=== PATIENT | female | born 1985 | race African-American/Black ===

== ENCOUNTER 2021-04-27 14:33 | Emergency (ER) | payer OTHER, MEDICAID, SELFPAY ==
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
--- NOTE | ~2021-04-27 | XR_ITS ---
EXAMINATION: XR hand RT min 3V INDICATION: Right hand pain TECHNIQUE: Three views of the right hand are obtained. COMPARISON: None available FINDINGS: There is no fracture, dislocation, or subluxation. The bones, soft tissues, and joint space s are normal. No radiopaque foreign body is identified. IMPRESSION: 1. No acute osseous abnormality. Reviewed, dictated and finalized at location A.
--- NOTE | ~2021-04-27 | XR_ITS ---
EXAMINATION: XR shoulder RT min 2V INDICATION: Right shoulder pain TECHNIQUE: Four views of the right shoulder are submitted. COMPARISON: None FINDINGS: Normal alignment. No fracture. Glenohumeral and acromioclavicular joint spaces are normal. Soft tissues are unremarkable. IMPRESSION: 1. No acute osseous abnormality. Reviewed, dictated and finalized at location A.
--- NOTE | ~2021-04-27 | XR_ITS ---
EXAMINATION: XR hand LT min 3V INDICATION: Left hand pain TECHNIQUE: Three views of the left hand are obtained. COMPARISON: None available FINDINGS: There is no fracture, dislocation, or subluxation. The bones, soft tissues, and joint space s are normal. No radiopaque foreign body is identified. IMPRESSION: 1. No acute osseous abnormality. Reviewed, dictated and finalized at location A.
[2021-04-27 14:43] VITALS: BP 149/109; PULSE 102; RESP 16; TEMP 36.7; O2SAT 99
[2021-04-27 16:38] LABS: Basophils Percent Auto 0.6 % (0.2-1.2); Eosinophils Absolute Auto 0.2 K/mm3 (0-0.3); Eosinophils Percent Auto 2.7 % (0-4.4); Hematocrit 37.2 % (37.0-47.0); Hemoglobin 11.5 g/dL (12.0-15.0); Immature Granulocyte Absolute 0.02 K/mm3 (0.00-0.031); Immature Granulocyte Percent A 0.3 % (0-0.5); Lymphocytes Absolute Auto 2.55 K/mm3 (0.9-3.2); Lymphocytes Percent Auto 36.8 % (18.3-44.2); Mean Corpuscular HGB Conc 30.9 g/dl (32-36); Mean Corpuscular Hemoglobin 24.4 pg (26-34); Mean Platelet Volume 9.2 fl (7.4-10.4); Monocytes Absolute Auto 0.4 K/mm3 (0.1-0.6); Monocytes Percent Auto 5.2 % (2.6-8.5); Neutrophils Absolute Auto 3.8 K/mm3 (1.3-6.7); Neutrophils Percent Auto 54.4 % (45.5-73.1); Platelet Count Result 337 k/mm3 (150-375); Red Blood Count 4.71 M/mm3 (4.2-5.4); Red Cell Distribution Width 15.1 % (11.5-14.5); White Blood Count 6.9 K/mm3 (4.5-10.0)
[2021-04-27 16:51] LABS: Alanine Aminotransferase 32 U/L (4-35); Albumin Level 4.2 g/dL (3.5-5.1); Alkaline Phosphatase 59 U/L (38-126); Anion Gap 11 mmol/L (8-16); Aspartate Amino Transferase 48 U/L (14-36); Bilirubin,Total 0.4 mg/dL (0.2-1.3); Blood Urea Nitrogen 5 mg/dL (7-17); Calcium 9.2 mg/dL (8.4-10.2); Carbon Dioxide 25 mmol/L (22-30); Chloride 104 mmol/L (98-107); Estimated CRCL calculation 93 ml/min; Estimated Glomerular Filt Rate > 60; Glucose 112 mg/dL (65-110); Potassium 3.4 mmol/L (3.4-5.0); Sodium 140 mmol/L (137-145)
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
[2021-04-27 19:51] VITALS: BP 152/118; PULSE 86; RESP 18; TEMP 37.2; O2SAT 100
== END 2021-04-27 19:54 | disposition home or self-care (01) ==
PROVIDERS: Emergency Medicine Emergency Medical Services; Emergency Provider General Practice
DX: S20.219A Contusion of unspecified front wall of thorax, initial encounter (principal); M79.642 Pain in left hand; M25.511 Pain in right shoulder; V89.0XXA Person injured in unspecified motor-vehicle accident, nontraffic, initial encounter
CPT/HCPCS: 36415; 71260; 73030; 73130; 74177; 80053; 81025; 85025; 99284; Q9967

== ENCOUNTER 2021-07-09 09:23 | Emergency (ER) | payer OTHER, SELFPAY ==
[2021-07-09 09:51] VITALS: BP 136/97; PULSE 64; RESP 16; O2SAT 100
[2021-07-09 12:39] VITALS: O2SAT 98
--- NOTE | 2021-07-09 12:40 | ED.URI ---
HPI - URI/Sore Throat General Chief Complaint: Upper Respiratory Infection Stated Complaint: i think i have COVID Time Seen by Provider: 07/09/21 11:25 Source: patient Mode of arrival: ambulatory Limitations: no limitations History of Present Illness HPI Narrative: This is a 35-year-old female that presents to the emergency department for Covid testing. Reports a possible exposure. Over the last couple of days she has noted cough, congestion, and a mild sore throat. Denies fever or shortness of breath. Related Data Allergies Allergy/AdvReac Type Severity Reaction Status Date / Time No Known Allergies Allergy Verified 04/27/21 15:58 Review of Systems Review of Systems: CONSTITUTIONAL: Denies fever ENT: Reports congestion, sore throat RESPIRATORY: Reports cough All systems reviewed & are unremarkable except as noted in HPI and below PMFSH Past Medical History Medical History (Updated 07/09/21 @ 12:44 by Keyanna Robb PA-C) No active medical problems Social History Social History (Updated 04/27/21 @ 18:33 by Mendel Newman PA-C) Smoking status: Never smoker Exam Narrative: GENERAL: Well-appearing, well-nourished, and in no acute distress. HEAD: Normocephalic, atraumatic. EYES: EOMI. ENT: Nares clear, no rhinorrhea or epistaxis. Mucous membranes moist. Oropharynx without tonsillar hypertrophy exudate or other lesions. Bilateral TMs pearly valdes non-bulging NECK: Supple. No adenopathy or masses. CHEST: Clear to auscultation. No respiratory distress. No wheezes rales or rhonchi HEART: Regular rate and rhythm. No murmur heard. Normal peripheral pulses. EXTREMITIES: Normal range of motion. No edema. SKIN: Warm, dry, no rash. NEURO: No focal deficits. Alert and oriented x3. PSYCH: Normal mood and affect Course Vital Signs Vital signs: Vital Signs Pulse Rate 64 07/09/21 09:51 Respiratory Rate 16 07/09/21 09:51 Blood Pressure 136/97 H 07/09/21 09:51 Pulse Oximetry 100 07/09/21 09:51 Pulse Rate 64 07/09/21 09:51 Respiratory Rate 16 07/09/21 09:51 Blood Pressure 136/97 H 07/09/21 09:51 Pulse Oximetry 98 07/09/21 12:39 MDM - URI/Sore Throat MDM Narrative Medical decision making narrative: Patient presents to the emergency department with cold symptoms present over the last couple of days. Lungs are clear on exam. Oxygen saturation is normal on room air. Influenza screen is negative. SARS-CoV-2 is pending. Patient was instructed on continued care of viral infection. She is to follow-up with primary care doctor. She was given warnings to return to the ER Lab Data Attestation: I reviewed the patient's lab results. Labs: Lab Results 07/09/21 Range/Units 11:44 SARS-CoV-2 RNA (RT-PCR) Pending Influenza A Screen Negative Reference Range: Negative Influenza B Screen Negative Reference Range: Negative Critical Care Time Critical Care Time Critical Care Time: No Discharge Plan Discharge Clinical Impression: Person under investigation for COVID-19 Upper respiratory infection Qualifiers: URI type: unspecified viral URI Qualified Code(s): J06.9 - Acute upper respiratory infection, unspecified Patient Disposition: Home, Self-Care Condition: Stable Instructions: Viral Syndrome (ED), COVID-19 (Coronavirus Disease 2019) (ED) Additional Instructions: Return to the emergency department for worsening symptoms, or any other concerns Remain well-hydrated, get plenty of rest. Take Tylenol or Motrin [id number] for pain as needed. Flonase for nasal congestion. Zyrtec for runny nose. Lozenges or Chloraseptic spray for sore throat. Albuterol 2 puffs every 4-6 hours as needed for shortness of breath. You were tested today for coronavirus. It is important you remain self isolated. Your results will likely be back tomorrow F
[2021-07-10 14:14] LABS: SARS-CoV-2 RNA PCR Positive
== END 2021-07-09 13:13 | disposition home or self-care (01) ==
PROVIDERS: Physician Assistant; Emergency Provider Emergency Medicine
DX: U07.1 COVID-19 (principal)
CPT/HCPCS: 87804; 99283; C9803; U0003; U0005

== ENCOUNTER 2021-07-18 20:02 | Emergency (ER) | payer OTHER, SELFPAY ==
[2021-07-18 20:07] VITALS: BP 143/100; PULSE 95; RESP 18; TEMP 36.3; O2SAT 100
--- NOTE | 2021-07-18 20:10 | ECG_ITS ---
Measurements Intervals Logan Rate: 98 P: 56 IA: 155 QRS: 49 QRSD: 99 T: -8 QT: 338 QTc: 432 Interpretive Statements SINUS RHYTHM NONSPECIFIC T-WAVE ABNORMALITY- INFERIOR LEADS BASELINE WANDER- V4 BORDERLINE ECG Electronically Signed On 07-19-2021 6:00:01 [place] TECHNICIAN by Ryan Moreno D.O.
--- NOTE | 2021-07-18 20:59 | PC.NURSE ---
pt. went out of [facility] door without notice of intentions to staff. Pt. in NAD, no increased work of breathing. Gait steady and brisk.
== END 2021-07-18 20:59 | disposition left against medical advice (07) ==
LOC: ANHED 21:07
PROVIDERS: Emergency Provider Emergency Medicine
DX: R07.9 Chest pain, unspecified (principal)
CPT/HCPCS: 93005; 99199

== ENCOUNTER 2021-12-22 00:26 | Emergency (ER) | payer OTHER, SELFPAY ==
--- NOTE | ~2021-12-22 | US_ITS ---
EXAMINATION: US OB follow up DATE: 12/22/2021 02:13 INDICATION: Right-sided pelvic pain during early second trimester of TECHNIQUE: Real-time ultrasound of the pelvis was performed. The interpreting radiologist was not pre sent for the study. COMPARISON: None. FINDINGS: There is a single living fetus in vertex presentation. The placenta is anterior. heart rate is 155 beats per minute (bpm). The amniotic fluid index is subjectively normal. The left ovary measures 3.3 x 1.8 x 3.7 cm containing a 1.1 cm anechoic likely corpus luteum cyst. The right ovary measures 2.8 x 2.1 x 1.7 cm. Vascular flow with both arterial and venous waveforms identified in both ovaries. The following biometric data were obtained: BPD: 3.4 cm -> 16 weeks 4 days Head circumference: 12.5 cm -> 16 weeks 2 days Abdominal circumference: 10.3 cm -> 16 weeks 2 days Femur length: 2.1 cm -> 16 weeks 3 days These measurements are concordant. Head circumference to abdominal circumference ratio: 1.21 (normal range 1.06-1.32). Estimated weight: 153 g (+/-) 23 g or 5 oz. (+/-) 1 oz. IMPRESSION: 1. Single living fetus in vertex presentation with heart rate of 155 bpm. 2. Gestational age by ultrasound of 16 weeks 3 day(s) +/- 1 week(s) 1 day(s) with ultrasound estimate d date of delivery (LUKASZ) of 06/05/2022. Estimated weight is 89th percentile by Hadlock criteria when 06/11/2022 is used as the LUKASZ. Please correlate with clinical information or earlier ultrasounds for most accurate LUKASZ. Reviewed, dictated and finalized at location A. IMPRESSION: 1. Single living fetus in vertex presentation with heart rate of 155 bpm. 2. Gestational age by ultrasound of 16 weeks 3 day(s) +/- 1 week(s) 1 day(s) wi th ultrasound estimated date of delivery (LUKASZ) of 06/05/2022. Estimated w eight is 89th percentile by Hadlock criteria when 06/11/2022 is used as the LUKASZ. Please correlate with clinical information or earlier ultrasounds for most acc urate LUKASZ.
[2021-12-22 00:33] VITALS: BP 142/78; PULSE 103; RESP 18; TEMP 36.6; O2SAT 100
--- NOTE | 2021-12-22 00:57 | ED.FEMALEGU ---
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 Patient states that the pain came on after she was exerting herself. Pain is present in her right low back and radiates down her right leg, and she states the pain is also occasionally present in her rectum area. She does have a history of sciatica, these has always been flared up in her previous pregnancies. Also reporting some pain over her right lower abdomen that she describes as a cramp. denies incontinence or retention of her bowel or bladder, saddle anesthesia, vaginal bleeding, vomiting. Patient has not seen an OB doctor yet during her , but does have follow-up at the end of this month. Has not had US to visualize IUP. Related Data Allergies Allergy/AdvReac Type Severity Reaction Status Date / Time No Known Allergies Allergy Verified 04/27/21 15:58 Review of Systems Review of Systems: Gen.: Denies fevers or chills Eyes: Denies eye pain or visual change ENT: Denies congestion Respiratory: Denies shortness of breath or cough CV: Denies chest pain or palpitations GI: Denies abdominal pain nausea, emesis or diarrhea : denies burning, urgency, frequency or hematuria Musculoskeletal: Reports back pain. Neuro: Denies numbness, tingling, weakness or focal weakness Skin: Denies rash Except as documented, all other systems reviewed and negative PMFSH Past Medical History Medical History No active medical problems Social History Social History (Updated 04/27/21 @ 18:33 by Mendel Newman, PAGonzaloC) Smoking status: Never smoker Exam Narrative: APPEARANCE: Well appearing, no pain in distress, well-nourished. Head: normocephalic and atraumatic. EYES: PERRLA/EOMI, conjunctivae clear NOSE: No nasal drainage EARS: External ear normal in appearance THROAT: Oropharynx is clear. Mucous membranes are moist. NECK: Supple. No adenopathy, no masses. RESPIRATORY: Airway patent, respirations nonlabored. Clear to auscultation bilaterally, no rales, rhonchi, wheezing. CARDIOVASCULAR: Regular rate and rhythm without murmurs, rubs, or gallops. ABDOMINAL: Normoactive bowel sounds. Soft, nontender, nondistended. No rebound tenderness or guarding. MUSCULOSKELETAL: Straight leg raise positive on the right. Extremities are warm and well-perfused. Moves all extremities well. No edema. NEURO: Normal speech. No focal neurologic deficits. SKIN: Skin is warm and dry. No rashes. PSYCHIATRIC: Normal affect/mood. Course Vital Signs Vital signs: Vital Signs Temperature 36.6 C 12/22/21 00:33 Pulse Rate 103 H 12/22/21 00:33 Respiratory Rate 18 12/22/21 00:33 Blood Pressure 142/78 H 12/22/21 00:33 Pulse Oximetry 100 12/22/21 00:33 Temperature 36.6 C 12/22/21 00:33 Pulse Rate 103 H 12/22/21 00:33 Respiratory Rate 18 12/22/21 00:33 Blood Pressure 142/78 H 12/22/21 00:33 Pulse Oximetry 100 12/22/21 00:33 MDM - Female Genitourinary MDM Narrative Medical decision making narrative: 36-year-old female who is currently about 3 to 4 months here for evaluation of right-sided low back pain and also right abdominal pain for the past 2 days. Patient hypertensive, vital signs otherwise normal. Leg raise is positive on the right, heart tones were detected at 155. Patient is hypertensive, but she is without headache, and UA without proteinuria so doubt preeclampsia. Patient has not had ultrasound to visualize IUP, so this was obtained in the emergency department. Lab Data Labs: Lab Results 12/22/21 Range/Units 02:16 Urine Color Yellow (Yellow) Urine Appearance Clear (Clear)
[2021-12-22] MEDS: LIDOCAINE 5% PATCH 1 PATCH TRANSDERM (01:32)
[2021-12-22] MEDS: ACETAMINOPHEN 500 MG TABLET 1000 MG PO (01:32)
--- NOTE | 2021-12-22 02:00 | PC.NURSE ---
pt reports unable to provide urine sample at this time
[2021-12-22 02:37] LABS: Appearance Urine Clear (Clear); Bilirubin Urine 1+ (Negative); Blood Urine Negative (Negative); Color Urine Yellow (Yellow); Glucose Urine UA Negative (Negative); Ketones Urine 1+ mg/dL (Negative); Leukocyte Esterase Ur Negative LEU/UL (Negative); Nitrate Urine Negative (Negative); Protein Urine Trace mg/dL (Negative); Specific Grav Ur >= 1.030 (1.001-1.035); Urobilinogen Urine 0.2 mg/dL (<2.0)
[2021-12-22 02:46] LABS: Bacteria Urine Trace /hpf; Mucus Urine Heavy /lpf; Squamous Epithelial Cell Urine Many /hpf (Few); WBC Urine 0-3 /hpf
[2021-12-22 02:49] LABS: Add Urine Microscopic? YES
[2021-12-22 04:25] VITALS: BP 126/70; PULSE 87; RESP 16; O2SAT 100
== END 2021-12-22 04:29 | disposition home or self-care (01) ==
PROVIDERS: Physician Assistant; Emergency Provider Family Medicine
DX: O99.891 Other specified diseases and conditions complicating pregnancy (principal); M54.41 Lumbago with sciatica, right side; Z3A.16 16 weeks gestation of pregnancy
CPT/HCPCS: 76816; 81001; 99284; A9270

== ENCOUNTER 2022-04-28 09:59 | Observation (INO) | payer OTHER, SELFPAY ==
[2022-04-28] VITALS (16 sets, daily range): BP systolic 122–135; BP diastolic 75–92; PULSE 101–114; O2SAT 96–100
--- NOTE | 2022-05-25 12:34 | PM.OBTRLD ---
OB - Triage/Final Diagnosis Visit Information Comments/Additional reasons for admission: I have assessed the risk for this patient, Anabel Frankel, and determined that she would benefit from observation care. Final Diagnosis (1) False labor: Code(s): O47.9 - False labor, unspecified Status: Acute
== END 2022-04-28 12:10 | disposition home or self-care (01) ==
PROVIDERS: Admitting Provider Obstetrics & Gynecology; Visit Provider Obstetrics & Gynecology
DX: O47.03 False labor before 37 completed weeks of gestation, third trimester (principal); Z3A.34 34 weeks gestation of pregnancy
CPT/HCPCS: G0378; G0379

== ENCOUNTER 2022-05-12 09:38 | Outpatient (CLI) | payer OTHER, SELFPAY ==
--- NOTE | ~2022-05-12 | US_ITS ---
EXAMINATION: US OB /maternal detail DATE: 05/12/2022 10:48 INDICATION: Limited care during third trimester . TECHNIQUE: Multiple obstetric sonographic images performed. FINDINGS: There is a single living fetus in vertex presentation. The placenta is anterior. MARIA DEL ROSARIO measures 15.5 c m (5th%-95%: 7.9-24.9 cm at 35 weeks estimated gestational age) . heart rate of 135 beats per m inute. The following anatomy was identified as normal: Falx and cava septum pellucidum. The cerebellum posterior fossa of the brain to the cerebellum and ci sterna magna are obscured due to vertex position of the skull and increasing shadowing calvarial calc ification due to gestational age. The spine is also not clearly visualized due to positioning of the fetus with the spine position post eriorly and abutting the gestational sac. Upper lip Nasal bone Heart with normal four-chamber view and left ventricular outflow tract. Nondiagnostic right ventricul ar outflow tract view. Diaphragm Stomach Kidneys Bladder 3 vessel cord and cord insertion Bilateral upper and lower extremities including hands and feet The following biometric data were obtained: BPD: 8.9 cm -> 36 weeks 1 days Head circumference: 33.3 cm -> 38 weeks 0 days Abdominal circumference: 31.6 cm -> 35 weeks 4 days Femur length: 6.7 cm -> 34 weeks 3 days These measurements are concordant. Head circumference to abdominal circumference ratio: 1.05 (normal range 0.93-1.08). Estimated weight: 2707 g (+/-) 406 g. or 5 lbs. 15 oz. (+/-) 14 oz. IMPRESSION: 1. Single living fetus with vertex presentation with heart rate of 135 bpm. 2. Estimated weight is 42nd percentile by Hadlock criteria when 06/10/2022 is used as the LUKASZ. Please correlate with clinical information or earlier ultrasounds for most accurate LUKASZ. 3. Incomplete but otherwise normal survey is detailed above due to positioning and relati vely advanced gestational age. Reviewed, dictated and finalized at location B. IMPRESSION: 1. Single living fetus with vertex presentation with heart rate of 135 b pm. 2. Estimated weight is 42nd percentile by Hadlock criteria when 2 is used as the LUKASZ. Please correlate with clinical information or earlier ult rasounds for most accurate LUKASZ. 3. Incomplete but otherwise normal survey is detailed above due to positioning and relatively advanced gestational age.
== END 2022-05-12 09:39 | disposition home or self-care (01) ==
PROVIDERS: Visit Provider Obstetrics & Gynecology Gynecology
DX: Z36.9 Encounter for antenatal screening, unspecified (principal); Z3A.00 Weeks of gestation of pregnancy not specified
CPT/HCPCS: 76805

== ENCOUNTER 2022-06-04 14:41 | Observation (INO) | payer OTHER, SELFPAY ==
[2022-06-04 16:00] VITALS: BMI 35.9
--- NOTE | 2022-06-04 16:25 | LDADM ---
This patient, Anabel Frankel, was admitted to Labor/Delivery/Recovery 107 on 06/04/22 at 14:41. Plans for labor, pain management and were discussed with patient. Patient/family oriented to hospital policies and general routines including ID bracelet, bed and alarms, visiting hours, pain management, procedures, bathroom and other care routines, personal items, smoking policy, room service/diet and guest tray routines, infant security routines, and visiting hours. Patient/Family are encouraged to report perceived risks to care and to ask questions if they do not understand what they are told or what they should do. See OBIX for further documentation.
--- NOTE | 2022-06-04 16:58 | PC.NURSE ---
Patient was on the FHT monitors from 5603-6381. FHT baseline from 1438-3697 was 135 with moderate variability. Accelerations present. No decelerations present. Patient having mild to moderate contractions every 10-14 minutes. From 1002-3319, FHT baseline was 150 with moderate variability and accelerations present. No decelerations present. Patient having mild to moderate contractions every 4-8 minutes.
--- NOTE | 2022-06-07 07:14 | PM.OBTRLD ---
OB - Triage/Final Diagnosis Visit Information Date of evaluation: 06/02/22 Reason for evaluation: threatened labor Comments/Additional reasons for admission: I have assessed the risk for this patient, Anabel Rodriguez Marlys, and determined that she would benefit from observation care.
--- NOTE | 2022-06-09 07:27 | PM.OBTRLD ---
OB - Triage/Final Diagnosis Visit Information Date of evaluation: 06/05/22 Reason for evaluation: threatened labor Comments/Additional reasons for admission: I have assessed the risk for this patient, Anabel Rodriguez Marlys, and determined that she would benefit from observation care.
== END 2022-06-04 16:50 | disposition home or self-care (01) ==
PROVIDERS: Admitting Provider Obstetrics & Gynecology; Visit Provider Obstetrics & Gynecology
DX: O47.9 False labor, unspecified (principal); Z3A.39 39 weeks gestation of pregnancy
CPT/HCPCS: G0378; G0379

== ENCOUNTER 2022-06-04 20:10 | Observation (INO) | payer OTHER, SELFPAY ==
[2022-06-04 20:23] VITALS: PULSE 100; PULSE 103; O2SAT 100
[2022-06-04 20:25] VITALS: PULSE 98; O2SAT 100
[2022-06-04 21:04] VITALS: BP 140/85; PULSE 90
[2022-06-04 21:11] LABS: Appearance Urine Clear (Clear); Bilirubin Urine Negative (Negative); Blood Urine Negative (Negative); Color Urine Yellow (Yellow); Glucose Urine UA Negative (Negative); Ketones Urine Negative (Negative); Leukocyte Esterase Ur Negative LEU/UL (Negative); Nitrate Urine Negative (Negative); Protein Urine Negative (Negative); Specific Grav Ur 1.015 (1.001-1.035); Urobilinogen Urine 0.2 mg/dL (<2.0); pH Urine 8.5 (5.0-9.0)
[2022-06-04 21:25] LABS: Add Urine Microscopic? NO
[2022-06-04 21:30] VITALS: BP 138/95; PULSE 88
[2022-06-04 22:52] VITALS: BMI 34.4
--- NOTE | 2022-06-04 22:52 | OBADM ---
This patient, Anabel Frankel, admitted to the OB room Labor/Delivery/Recovery 105 for observation. Patient/family oriented to hospital policies and general routines including ID bracelet, bed and alarms, visiting hours, pain management, procedures, bathroom and other care routines, personal items, smoking policy, room service/diet, and visiting hours. Patient/Family are encouraged to report perceived risks to care and to ask questions if they do not understand what they are told or what they should do.
--- NOTE | 2022-06-06 09:31 | PM.OBTRLD ---
OB - Triage/Final Diagnosis Visit Information Reason for evaluation: threatened labor Comments/Additional reasons for admission: I have assessed the risk for this patient, Anabel Frankel, and determined that she would benefit from observation care. Evaluation Laboratory results: Laboratory Tests 06/04/22 20:51 Urine Color Yellow Urine Appearance Clear Urine pH 8.5 Ur Specific [place] 1.015 Urine Protein Negative Urine Glucose (UA) Negative Urine Ketones Negative Ur Blood (Man) Negative Urine Nitrate Negative Urine Bilirubin Negative Urine Urobilinogen 0.2 Leukocyte Esterase Rfl Negative
--- NOTE | 2022-06-08 08:53 | P.PNOB_ITS ---
OB - Triage/Final Diagnosis Visit Information Reason for evaluation: threatened labor Comments/Additional reasons for admission: I have assessed the risk for this patient, Anabel Frankel, and determined that she would benefit from observation care. Evaluation Laboratory results: Laboratory Tests 06/04/22 20:51 Urine Color Yellow Urine Appearance Clear Urine pH 8.5 Ur Specific [place] 1.015 Urine Protein Negative Urine Glucose (UA) Negative Urine Ketones Negative Ur Blood (Man) Negative Urine Nitrate Negative Urine Bilirubin Negative Urine Urobilinogen 0.2 Leukocyte Esterase Rfl Negative
== END 2022-06-04 23:16 | disposition home or self-care (01) ==
PROVIDERS: Admitting Provider Obstetrics & Gynecology; Visit Provider Obstetrics & Gynecology
DX: O47.1 False labor at or after 37 completed weeks of gestation (principal); Z3A.39 39 weeks gestation of pregnancy
CPT/HCPCS: 81003; G0378; G0379

== ENCOUNTER 2022-06-05 11:32 | Inpatient (IN) | payer OTHER, SELFPAY ==
[2022-06-05] VITALS (73 sets, daily range): BP systolic 103–171; BP diastolic 68–115; PULSE 74–220; TEMP 36.6–36.9; O2SAT 70–100; BMI 35.5
[2022-06-05 12:39] LABS: Basophils Percent Auto 0.3 % (0.2-1.2); Eosinophils Absolute Auto 0.1 K/mm3 (0-0.3); Eosinophils Percent Auto 1.9 % (0-4.4); Hematocrit 30.2 % (37.0-47.0); Hemoglobin 9.5 g/dL (12.0-15.0); Immature Granulocyte Absolute 0.04 K/mm3 (0.00-0.031); Immature Granulocyte Percent A 0.5 % (0-0.5); Lymphocytes Absolute Auto 2.11 K/mm3 (0.9-3.2); Lymphocytes Percent Auto 28.6 % (18.3-44.2); Mean Corpuscular HGB Conc 31.5 g/dl (32-36); Mean Corpuscular Hemoglobin 23.9 pg (26-34); Mean Corpuscular Volume 75.9 fl (80-100); Monocytes Absolute Auto 0.5 K/mm3 (0.1-0.6); Monocytes Percent Auto 7.3 % (2.6-8.5); Neutrophils Absolute Auto 4.5 K/mm3 (1.3-6.7); Neutrophils Percent Auto 61.4 % (45.5-73.1); Platelet Count Result 260 k/mm3 (150-375); Red Blood Count 3.98 M/mm3 (4.2-5.4); Red Cell Distribution Width 14.5 % (11.5-14.5); White Blood Count 7.4 K/mm3 (4.5-10.0)
--- NOTE | 2022-06-05 12:44 | WPDOBADMIT ---
Obstetrics - Admit Note Admission Note: record reviewed. No pertinent additions to the history and/or any subsequent changes in the physical findings that are not consistent with the expected course of the were found. Additions to the history and/or subsequent changes in the physical findings follow. None.
--- NOTE | 2022-06-05 12:44 | LDADM ---
This patient, Anabel Frankel, was admitted to Labor/Delivery/Recovery 107 on 06/05/22 at 11:32. Plans for labor, pain management and were discussed with patient. Patient/family oriented to hospital policies and general routines including ID bracelet, bed and alarms, visiting hours, pain management, procedures, bathroom and other care routines, personal items, smoking policy, room service/diet and guest tray routines, infant security routines, and visiting hours. Patient/Family are encouraged to report perceived risks to care and to ask questions if they do not understand what they are told or what they should do. See OBIX for further documentation.
--- NOTE | 2022-06-05 12:45 | PM.OBPNLAB ---
Pain Control Date/time seen: 06/05/22 12:40 Pain control: tolerating well Pelvic Exam Dilation (cm): 5 Effacement (%): 50 station: -3 Amniotic membrane status: Intact Contractions Monitor mode: External Contraction frequency: 7 (irregular) Contraction pattern: Irregular Status status: Category l Comments: Baseline 135. Moderate variability. Accelerations Assessment and Plan Comments: CNM to bedside. patient with mild discomfort, complains of contractions every 5-7 minutes. Discussed options of expectant management versus augmentation at this time. Patient strongly desires rupture of membranes. Discussed risk and benefit of procedure and she desires to continue. Amniotomy performed. Small amount of clear fluid returned. Anticipate vaginal .
[2022-06-05 13:22] LABS: Uric Acid 4.4 mg/dL (2.5-7.5)
--- NOTE | 2022-06-05 13:22 | WPDANESEPP ---
Anes - Eval Pre Procedure Procedure: labor epidural Date/Time: 06/05/22 13:22 Preop Diagnosis: labor pain Pre Op Diagnosis: Induction of Labor Patient Data Age: 36 Gender: F Height: 1.6 m Weight: 91 kg Last Vital Signs Pulse 86 06/05/22 12:42 BP 140/89 06/05/22 12:42 O2 Del Method Room Air 06/05/22 12:33 Allergies Allergy/AdvReac Type Severity Reaction Status Date / Time No Known Allergies Allergy Verified 05/31/22 12:45 Home Medications Medication Instructions Recorded Confirmed Type 1 tablet PO DAILY 05/19/22 05/31/22 History Vitamin D3 50,000 unit PO WEEKLY 05/19/22 05/31/22 History ferrous sulfate 325 mg (65 mg 325 mg PO BID 05/19/22 05/31/22 History iron) tablet (FeroSul) magnesium 1 tablet PO EVERY OTHER DAY 05/19/22 05/31/22 History Laboratory Tests 06/05/22 06/05/22 06/05/22 12:30 12:30 12:59 WBC 7.4 K/mm3 K/mm3 (4.5-10.0) RBC 3.98 M/mm3 L M/mm3 (4.2-5.4) Hgb 9.5 g/dL L g/dL (12.0-15.0) Hct 30.2 % L % (37.0-47.0) MCV 75.9 fl L fl (80-100) MCH 23.9 pg L pg (26-34) MCHC 31.5 g/dl L g/dl (32-36) RDW 14.5 % % (11.5-14.5) Plt Count 260 k/mm3 k/mm3 (150-375) MPV 9.0 fl fl (7.4-10.4) Immature Gran % (Auto) 0.5 % % (0-0.5) Neut % (Auto) 61.4 % % (45.5-73.1) Lymph % (Auto) 28.6 % % (18.3-44.2) [place] % (Auto) 7.3 % % (2.6-8.5) Eos % (Auto) 1.9 % % (0-4.4) Baso % (Auto) 0.3 % % (0.2-1.2) Lymph # (Auto) 2.11 K/mm3 K/mm3 (0.9-3.2) [place] # (Auto) 0.5 K/mm3 K/mm3 (0.1-0.6) Eos # (Auto) 0.1 K/mm3 K/mm3 (0-0.3) Baso # (Auto) 0.0 K/mm3 K/mm3 (0.0-0.1) Abs Immat Gran (auto) 0.04 K/mm3 H K/mm3 (0.00-0.031) Absolute Neuts (auto) 4.5 K/mm3 K/mm3 (1.3-6.7) Absolute Nucleated RBC 0.0 K/mm3 K/mm3 (0.0-0.012) Nucleated RBC % 0.0 % % (0.0-0.2) Sodium Potassium Chloride Carbon Dioxide Anion Gap BUN Creatinine Estim Creat Clear Calc Estimated GFR Glucose Uric Acid 4.4 mg/dL mg/dL (2.5-7.5) Calcium Total Bilirubin AST ALT Alkaline Phosphatase Total Protein Albumin RPR Pending 06/05/22 12:59 WBC RBC Hgb Hct MCV MCH MCHC RDW Plt Count MPV Immature Gran % (Auto) Neut % (Auto) Lymph % (Auto) [place] % (Auto) Eos % (Auto) Baso % (Auto) Lymph # (Auto) [place] # (Auto) Eos # (Auto) Baso # (Auto) Abs Immat Gran (auto) Absolute Neuts (auto) Absolute Nucleated RBC Nucleated RBC % Sodium Pending Potassium Pending Chloride Pending Carbon Dioxide Pending Anion Gap Pending BUN Pending Creatinine Pending Estim Creat Clear Calc Pending Estimated GFR Pending Glucose Pending Uric Acid Calcium Pending Total Bilirubin Pending AST Pending ALT Pending Alkaline Phosphatase Pending Total Protein Pending Albumin Pending RPR Patient hx anesthesia problems: none Family hx anesthesia problems: none Results Review: All pre-operative results and documents have been reviewed as part of the pre-operative evaluation. [facility] Past Medical History Medical History No active medical problems Social History Social History Smoking packs per day: 0.25 Smoking cigarettes per day: 5.0 Years smoked: 20 Smoking pack-ye
[2022-06-05 13:32] LABS: Alanine Aminotransferase 16 U/L (6-35); Albumin Level 3.4 g/dL (3.5-5.1); Alkaline Phosphatase 193 U/L (38-126); Anion Gap 8 mmol/L (8-16); Aspartate Amino Transferase 23 U/L (14-36); Bilirubin,Total 0.3 mg/dL (0.2-1.3); Blood Urea Nitrogen 5 mg/dL (7-17); Calcium 8.3 mg/dL (8.4-10.2); Carbon Dioxide 22 mmol/L (22-30); Chloride 104 mmol/L (98-107); Estimated CRCL calculation 142 ml/min; Estimated Glomerular Filt Rate > 60; Glucose 80 mg/dL (65-110); Potassium 3.9 mmol/L (3.4-5.0); Sodium 134 mmol/L (137-145)
[2022-06-05 14:26] LABS: Amphetamine Screen Urine Negative (Negative); Barbiturate Screen Urine Negative (Negative); Benzodiazepines Screen Urine Negative (Negative); Cannabinoid Screen Urine Positive (Negative); Cocaine Screen Urine Negative (Negative); Methadone Screen Urine Negative (Negative); Opiate Screen Urine Negative (Negative); Phencyclidine Screen Urine Negative (Negative)
[2022-06-05] MEDS: LACTATED RINGERS 1,000 ML 125 ML IV CONT ×2 (15:35→17:56)
[2022-06-05] MEDS: OXYTOCIN 30 UNITS/NS 500 ML 30 UNITS/500 ML BAG IV CONT (15:36)
[2022-06-05] MEDS: fentaNYL CITRATE INJ (*CRX) 100 MCG/2 ML VIAL 50 MCG IV PUSH (16:33)
[2022-06-05] MEDS: SODIUM CHLORIDE 0.9% IV 300 ML 600 ML I-UTERINE (17:49)
--- NOTE | 2022-06-05 18:10 | PM.OBPNLAB ---
Pain Control Date/time seen: 06/05/22 18:10 Pain control: narcotic analgesia Comments: Attempted epidural placement this afternoon but pt was unable to remain still for placement. Moving and rocking with contractions, moaning, tearful at times. Pelvic Exam Amniotic membrane status: Ruptured Comments: SVE with IUPC placement / Contractions Monitor mode: External Contraction frequency: 2 (2-3) Contraction duration: 60 Contraction pattern: Regular Status status: Category ll Assessment and Plan Comments: CNM at bedside. Pt laboring. Making frequent position changes, rocking and moaning with contractions. IUPC inserted due to variable decels. Amnioinfusion started. Pitocin off. Attempted to place FSE but pt unable to remain still long enough to place. EFM continually adjusted.
--- NOTE | 2022-06-05 18:50 | PM.OBPNLAB ---
Pain Control Date/time seen: 06/05/22 18:50 Pain control: epidural Pelvic Exam Dilation (cm): 7 Effacement (%): 80 (anterior portion of cervix edematous) station: -1 Amniotic membrane status: Ruptured Contractions Monitor mode: Internal Contraction pattern: Regular Status status: Category ll Comments: Baseline 125. Reassured by moderate variability and acceleration Assessment and Plan Pitocin rate (mU/min): 0 Assessment: active labor Plan: continuous present management Comments: Will restart oxytocin as needed to achieve adequate contraction pattern. Recommend frequent repositioning. Anticipate vaginal .
[2022-06-05] MEDS: diphenhydrAMINE HCl INJ 50 MG/ML VIAL 25 MG IV PUSH (19:08)
[2022-06-05] MEDS: CALCIUM CARBONATE (TUMS) 500 MG (200 MG ELEMENTAL) PO (19:14)
[2022-06-05] MEDS: miSOPROStol 200 MCG TABLET 800 MCG RECTAL (19:43)
--- NOTE | 2022-06-05 19:55 | PM.OBPRVD ---
OB - Delivery Note Procedure Delivery date: 06/05/22 Procedure: Induction method: AROM and Per Pitocin Protocol Delivery augmentation: Pitocin Delivery monitor: External FHT, External Uterine, Internal FHT and Internal Uterine Route of delivery: Episiotomy description: None Laceration Description: Periurethral, Vaginal (right vaginal wall 1st degree) and Superficial Delivery repair: vicryl Specimen: No Quantitative Blood Loss (ml): 150 Anesthesia type: Epidural Disposition: Floor Narrative: Pt complete dilation and FHTs with repetitive variable decelerations. Pt positioned in lithotomy and began pushing with contractions. Pt brought the head to a crown. She delivered the head with the next push. There was good restitution and a loose nuchal cord was identified. With the next push, the remainder of the infant was delivered. Terminal meconium was present. The was placed on the maternal abdomen and cared for by the nursery nurse. After one minute of life, the cord was doubly clamped and cut. Cord gasses and cord blood were obtained. The placenta delivered spontaneously. Uterine tone was firm. A small (1.5 cm) right vaginal wall 1st degree laceration was repaired in the usual fashion. There was excellent hemostasis. 800mcg Misoprostol given NV due to grand multiparity for prevention of uterine atony. Baby Date of : 06/05/22 Time of : 19:31 Weeks of gestation at delivery: 39 Infant gender: Male Weight (pounds): 7 Weight (ounces): 2 presentation: vertex position: Left Occiput Anterior Placenta delivery description: Spontaneous Cord Vessel Description: 3 Vessels score one minute: 8 score five minutes: 9
--- NOTE | 2022-06-05 20:07 | PM.OBDSVD ---
DS: Admitting Diagnosis Discharge Date 06/07/22 Admitting Diagnosis 1. 36 y.o at 39w2d. 2. Latent labor 3. Grand Multip 4. Anemia 5. Nicotine use in 6. late transfer of care 7. Anxiety. 8. Hx Depression 2019 9. Undesired Future Fertility DS: Discharge Diagnosis Discharge Diagnosis (1) Anemia affecting : Code(s): O99.019 - Anemia complicating , unspecified trimester Status: Acute (2) (normal spontaneous vaginal delivery): Code(s): O80 - Encounter for full-term uncomplicated delivery Status: Acute (3) Mother currently breast-feeding: Code(s): Z39.1 - Encounter for care and examination of lactating mother Status: Acute (4) Anxiety: Code(s): F41.9 - Anxiety disorder, unspecified Status: Acute (5) Nicotine use: Code(s): Z72.0 - Tobacco use Status: Acute (6) Marijuana use during : Code(s): O99.320 - Drug use complicating , unspecified trimester; F12.90 - Cannabis use, unspecified, uncomplicated Status: Acute OB - DS: Summary Hospital Course Hospital Course: uncomplicated OB Procedures : Ultrasound OB Procedures Intrapartum: Spontaneous Vag Delivery OB Procedures: : None Peripartum Data Infant Delivery Method: Natural Vaginal Laceration Description: Vaginal - 1st Degree and Superficial Episiotomy description: None complications: none Status at Discharge Functional status at discharge: independent ambulation Overall status at discharge: patient is progressing back to baseline Time Spent with Patient Time attestation: Total time spent providing and/or coordinating discharge services: DS: Data Data Completed and Pending Labs on day of discharge: Labs from last 24 hours 06/05/22 06/05/22 06/05/22 14:03 12:59 12:59 WBC RBC Hgb Hct MCV MCH MCHC RDW Plt Count MPV Immature Gran % (Auto) Neut % (Auto) Lymph % (Auto) [place] % (Auto) Eos % (Auto) Baso % (Auto) Lymph # (Auto) [place] # (Auto) Eos # (Auto) Baso # (Auto) Abs Immat Gran (auto) Absolute Neuts (auto) Absolute Nucleated RBC Nucleated RBC % Sodium 134 L Potassium 3.9 Chloride 104 Carbon Dioxide 22 Anion Gap 8 BUN 5 L Creatinine 0.50 L Estim Creat Clear Calc 142 Estimated GFR > 60 Glucose 80 Uric Acid 4.4 Calcium 8.3 L Total Bilirubin 0.3 AST 23 ALT 16 Alkaline Phosphatase 193 H Total Protein 7.0 Albumin 3.4 L Urine Opiates Screen Negative Urine Methadone Screen Negative Ur Barbiturates Screen Negative Ur Phencyclidine Scrn Negative Ur Amphetamine Screen Negative U Benzodiazepines Scrn Negative Urine Cocaine Screen Negative U Cannabinoids Screen Positive A RPR Blood Type Antibody Screen 06/05/22 06/05/22 06/05/22 12:30 12:30 12:30 WBC 7.4 RBC 3.98 L Hgb 9.5 L Hct 30.2 L MCV 75.9 L MCH 23.9 L MCHC 31.5 L RDW 14.5 Plt Count 260 MPV 9.0 Immature Gran % (Auto) 0.5 Neut % (Auto) 61.4 Lymph % (Auto) 28.6 [place] % (Auto) 7.3 Eos % (Auto) 1.9 Baso % (Auto) 0.3 Lymph # (Auto) 2.11 [place] # (Auto) 0.5 Eos # (Auto) 0.1 Baso # (Auto) 0.0 Abs Immat Gran (auto) 0.04 H Absolute Neuts (auto) 4.5 Absolute Nucleated RBC 0.0 Nucleated RBC % 0.0 Sodium Potassium Chloride Carbon Dioxide Anion Gap BUN Creatinine Estim Creat Clear Calc Estimated GFR Glucose Uric Acid Calcium Total Bilirubin AST ALT Alkaline Phosphatase Total Protein Albumin Urine Opiates Screen Urine Methadone Screen Ur Barbiturates Screen Ur Phencyclidine Scrn Ur Amphetamine Screen U Benzodiazepines Scrn Urine Cocaine Screen U Cannabinoids Screen RPR Pending Blood Type O Positive
[2022-06-05] MEDS: OXYTOCIN 30 UNITS/NS 500 ML 30 UNITS/500 ML BAG 125 UNITS IV CONT (20:09)
[2022-06-05] MEDS: IBUPROFEN 600 MG TABLET PO (22:15)
[2022-06-05] MEDS: ACETAMINOPHEN 325 MG TABLET 650 MG PO (23:28)
[2022-06-06] VITALS (7 sets, daily range): BP systolic 126–141; BP diastolic 79–91; PULSE 84–98; RESP 16–18; TEMP 36.3–37.7; O2SAT 100
[2022-06-06 05:00] LABS: Hematocrit 30.2 % (37.0-47.0); Hemoglobin 9.3 g/dL (12.0-15.0)
[2022-06-06] MEDS: ACETAMINOPHEN 325 MG TABLET 650 MG PO (05:59)
[2022-06-06] MEDS: IBUPROFEN 600 MG TABLET PO ×4 (05:59→23:34)
--- NOTE | 2022-06-06 07:56 | PM.OBPNVD ---
OB - PN: Subj Subjective Date/time seen: 06/06/22 07:40 Patient comments: other (uterine cramping. Pain otherwise controlled. ) baby status: doing well and nursing well feeding status: exclusively breast feeding OB - PN: Obj Data Labs CBC & Chem 7: 06/06/22 03:38 06/05/22 12:59 Labs: Laboratory Results - last 24 hr 06/05/22 06/05/22 06/05/22 12:30 12:30 12:59 WBC 7.4 RBC 3.98 L Hgb 9.5 L Hct 30.2 L MCV 75.9 L MCH 23.9 L MCHC 31.5 L RDW 14.5 Plt Count 260 MPV 9.0 Immature Gran % (Auto) 0.5 Neut % (Auto) 61.4 Lymph % (Auto) 28.6 [place] % (Auto) 7.3 Eos % (Auto) 1.9 Baso % (Auto) 0.3 Lymph # (Auto) 2.11 [place] # (Auto) 0.5 Eos # (Auto) 0.1 Baso # (Auto) 0.0 Abs Immat Gran (auto) 0.04 H Absolute Neuts (auto) 4.5 Absolute Nucleated RBC 0.0 Nucleated RBC % 0.0 Sodium Potassium Chloride Carbon Dioxide Anion Gap BUN Creatinine Estim Creat Clear Calc Estimated GFR Glucose Uric Acid 4.4 Calcium Total Bilirubin AST ALT Alkaline Phosphatase Total Protein Albumin Urine Opiates Screen Urine Methadone Screen Ur Barbiturates Screen Ur Phencyclidine Scrn Ur Amphetamine Screen U Benzodiazepines Scrn Urine Cocaine Screen U Cannabinoids Screen Blood Type O Positive Antibody Screen Negative 06/05/22 06/05/22 06/06/22 12:59 14:03 03:38 WBC RBC Hgb 9.3 L Hct 30.2 L MCV MCH MCHC RDW Plt Count MPV Immature Gran % (Auto) Neut % (Auto) Lymph % (Auto) [place] % (Auto) Eos % (Auto) Baso % (Auto) Lymph # (Auto) [place] # (Auto) Eos # (Auto) Baso # (Auto) Abs Immat Gran (auto) Absolute Neuts (auto) Absolute Nucleated RBC Nucleated RBC % Sodium 134 L Potassium 3.9 Chloride 104 Carbon Dioxide 22 Anion Gap 8 BUN 5 L Creatinine 0.50 L Estim Creat Clear Calc 142 Estimated GFR > 60 Glucose 80 Uric Acid Calcium 8.3 L Total Bilirubin 0.3 AST 23 ALT 16 Alkaline Phosphatase 193 H Total Protein 7.0 Albumin 3.4 L Urine Opiates Screen Negative Urine Methadone Screen Negative Ur Barbiturates Screen Negative Ur Phencyclidine Scrn Negative Ur Amphetamine Screen Negative U Benzodiazepines Scrn Negative Urine Cocaine Screen Negative U Cannabinoids Screen Positive A Blood Type Antibody Screen OB - PN A/P Assessment and Plan (1) Marijuana use during : Code(s): O99.320 - Drug use complicating , unspecified trimester; F12.90 - Cannabis use, unspecified, uncomplicated Status: Acute (2) Nicotine use: Code(s): Z72.0 - Tobacco use Status: Acute (3) Anxiety: Code(s): F41.9 - Anxiety disorder, unspecified Status: Acute Assessment and Plan: Mood stable. no meds (4) Mother currently breast-feeding: Code(s): Z39.1 - Encounter for care and examination of lactating mother Status: Acute Assessment and Plan: without difficulty. Very experienced nursing previous children. (5) (normal spontaneous vaginal delivery): Code(s): O80 - Encounter for full-term uncomplicated delivery Status: Acute Assessment and Plan: Perineum with minimal edema and discomfort. Lochia WNL. (6) Anemia affecting : Code(s): O99.019 - Anemia complicating , unspecified trimester Status: Acute Assessment and Plan: Labs stable. Denies dizziness Plan day: 1 Plan: routine care Time Spent With Patient Time: Total time spent is greater than 50% in coordination of care (as documented) at patient's floor/unit and/or counseling patient: Review of Systems Review of Systems: All systems reviewed & are unremarka
[2022-06-06] MEDS: MULTIVIT/MIN/PREN/FOL AC/IRON TABLET 1 TAB PO (08:30)
[2022-06-06] MEDS: POLYSACCHARIDE IRON COMPLEX 150 MG CAPSULE PO ×2 (08:30→17:03)
[2022-06-06] MEDS: DOCUSATE SODIUM 100 MG CAPSULE PO ×2 (08:30→17:03)
[2022-06-06] MEDS: HYDROcodone/acetaminophen (*CRX) 5-325 MG TABLET 1 TAB PO ×3 (08:31→17:03)
--- NOTE | 2022-06-06 08:54 | WPDANLDPN2 ---
Anes-Prog Note L&D Date/Time: 06/06/22 08:54 Neuro status: Neuro function grossly intact. Vital Signs: Last Vital Signs Temp 37.2 C 06/06/22 04:00 Pulse 86 06/06/22 04:00 Resp 18 06/06/22 04:00 BP 126/83 06/06/22 04:00 Pulse Ox 100 06/06/22 04:00 O2 Del Method Room Air 06/06/22 00:00 Pain score (VAS): 0 I/O: Intake & Output 06/05/22 06/06/22 06/06/22 23:59 07:59 15:59 Intake Total 1000 Output Total 150 Balance 850 Patient feedback: Patient satisfied with anesthetic care.
--- NOTE | 2022-06-06 11:16 | PC.NURSE ---
[id number] Introductions were made, then consulted with patient to assess needs related to . Mother led the conversation stating has been going well and baby likes to eat a lot. Resources provided for inpatient and outpatient services using mom/baby guide. Discussed using cannabis with . Mother voiced understanding of information and will call if there is a request for assistance.
[2022-06-06 13:47] LABS: Rapid Plasma Reagin Non-Reactive (NonReactive)
[2022-06-07] MEDS: IBUPROFEN 600 MG TABLET PO (05:20)
--- NOTE | 2022-06-07 07:34 | PM.OBPNVD ---
OB - PN: Subj Subjective Date/time seen: 06/07/22 07:34 Patient comments: no complaints and pain well controlled baby status: doing well OB - PN: Obj Data Labs 06/06/22 03:38 06/05/22 12:59 Labs: Laboratory Results - last 24 hr 06/05/22 12:30 RPR Non-reactive OB - PN A/P Plan day: 2 Plan: routine care, discharge home, follow up 6 weeks and other (plans BTL at 6 wks) Time Spent With Patient Time: Total time spent is greater than 50% in coordination of care (as documented) at patient's floor/unit and/or counseling patient: Exam : Bimanual exam- vagina & uterus: other (Uterus firm, nt @U)
[2022-06-07 07:55] VITALS: BP 139/91; PULSE 72; RESP 16; TEMP 37.4; O2SAT 100
[2022-06-07] MEDS: DOCUSATE SODIUM 100 MG CAPSULE PO (08:36)
[2022-06-07] MEDS: MULTIVIT/MIN/PREN/FOL AC/IRON TABLET 1 TAB PO (08:36)
[2022-06-07] MEDS: POLYSACCHARIDE IRON COMPLEX 150 MG CAPSULE PO (08:36)
[2022-06-07] MEDS: HYDROcodone/acetaminophen (*CRX) 5-325 MG TABLET 1 TAB PO (08:42)
--- NOTE | 2022-06-07 12:27 | PC.NURSE ---
Patient viewed the discharge video Mother & Baby Care, The First Two Weeks . Patient was given the opportunity and encouraged to ask questions. Patient verbalized understanding of information shared and has been given the mother/baby guide for home reference.
[2022-06-08 10:41] VITALS: BP 137/90; PULSE 90; RESP 20; TEMP 36.8; O2SAT 100
== END 2022-06-07 14:20 | disposition home or self-care (01) | DRG 560 ==
LOC: ANHLDR 20:11 → ANHOB2 06-06 01:11
PROVIDERS: Admitting Provider Obstetrics & Gynecology Gynecology; PCP Advanced Practice Midwife; Visit Provider Obstetrics & Gynecology Gynecology
DX: O99.02 Anemia complicating childbirth (principal); Z37.0 Single live birth; Z3A.39 39 weeks gestation of pregnancy; D64.9 Anemia, unspecified; O99.324 Drug use complicating childbirth; F12.90 Cannabis use, unspecified, uncomplicated; O99.334 Smoking (tobacco) complicating childbirth; F17.210 Nicotine dependence, cigarettes, uncomplicated; O69.81X0 Labor and delivery complicated by cord around neck, without compression, not applicable or unspecified; O36.8330 Maternal care for abnormalities of the fetal heart rate or rhythm, third trimester, not applicable or unspecified; O71.82 Other specified trauma to perineum and vulva; O70.0 First degree perineal laceration during delivery; O99.344 Other mental disorders complicating childbirth; F41.9 Anxiety disorder, unspecified
CPT/HCPCS: 36415; 80053; 80307; 84550; 85014; 85018; 85025; 86592; 86850; 86900; 86901; A9270; J1200; J2590; J2795; J3010; J7030; J7120